=== PATIENT | male | born 1965 | race Caucasian/White ===

== ENCOUNTER 2023-09-29 07:31 | Emergency (ER) | payer BC, SELFPAY ==
--- NOTE | 2023-09-29 07:33 | NURSING ---
NO OLD EKGS
[2023-09-29 07:35] VITALS: BP 130/65; PULSE 108; RESP 22; TEMP 36.6; O2SAT 94; BMI 34.3
--- NOTE | 2023-09-29 07:40 | EKG12_ITS ---
Test Reason : CP Blood Pressure : / mmHG Vent. Rate : 108 BPM Atrial Rate : 108 BPM P-R Int : 124 ms QRS Dur : 082 ms QT Int : 322 ms P-R-T Axes : 065 065 047 degrees QTc Int : 431 ms Sinus tachycardia Inferior infarct , age undetermined Possible Anterior infarct , age undetermined Abnormal ECG Confirmed by DENISSE SETH, RADHA ([id number]), photography editor PATRICK SIMON ([id number]) on 09/30/2023 9:23:48 AM Referred By: JOSELIN Confirmed By:RADHA SALCEDO MD
--- NOTE | 2023-09-29 07:58 | RAD_ITS ---
STUDY: X-RAY CHEST REASON FOR EXAM: Male, 58 years old. chest pain TECHNIQUE: Single AP portable view of the chest. COMPARISON: None. FINDINGS: No visualized consolidation. Top normal heart size. Chronic appearing streaky interstitial opacities in the left retrocardiac region. The lungs are clear and expanded. There is no demonstrated pleural abnormality. Sternal cerclage wires and vascular clips are present from a prior sternotomy and coronary artery bypass graft procedure (CABG). Normal mediastinum and cary. Normal visualized pulmonary arteries. Normal visualized aortic arch and descending thoracic aorta. Normal visualized thoracic spine. Normal visualized ribs, clavicles, and shoulders. There is no demonstrated abnormality of the visualized soft tissue structures of the upper abdomen. RAD/Chest 1 View (Portable) IMPRESSION: 1. No visualized consolidation. Top normal heart size. Chronic appearing streaky interstitial opacities in the left retrocardiac region. Electronically Signed: Jr Laureano MD at 8:17 EST ,
[2023-09-29] MEDS: Aspirin 81 MG TAB.CHEW 324 MG PO (08:03)
[2023-09-29 08:06] LABS: Absolute Lymphocyte Count 0.59 X10^3/uL (0.83-4.51); Absolute Neutrophil Count 10.9 X10^3/uL (2.0-7.7); Basophil# 0.04 X10^3/uL; Basophil% 0.3 % (0-1); Eosinophil# 0.08 X10^3/uL; Eosinophils% 0.6 % (0-5); Hematocrit 48.4 % (40-54); Hemoglobin 16.3 g/dL (13.0-16.5); Lymphocyte # 0.59 X10^3/ul (0.83-4.51); Lymphocyte % 4.8 % (19-41); Mean Corp Hgb Conc 33.7 g/dL (32-36); Mean Corpuscular Hgb 29.3 pg (27.0-32.0); Mean Corpuscular Volume 86.9 fL (80-94); Mean Platelet Vol. 10.4 fl (6.2-12.0); Monocyte# 0.67 X10^3/uL; Monocyte% 5.4 % (0-10); NRBC Flagged by Analyzer 0 % (0-5); Neutrophil # 10.91 X10^3/uL (2.7-7.7); Neutrophil % 88.6 % (47-70); POSITIVE DIFFERENTIAL YES; Platelet Count 287 K/mm3 (150-450); RBC Distribution Width CV 13.1 % (11.6-14.6); RBC Distribution Width SD 40.9 fl (35.1-43.9); Red Blood Count 5.57 M/mm3 (4.6-6.2); White Blood Count 12.3 K/mm3 (4.4-11.0)
[2023-09-29 08:18] LABS: Differential Indicated SCAN CRITERIA MET
[2023-09-29 08:24] LABS: Anion Gap 7 (5-15); BUN 39 mg/dL (7-18); BUN/Creat Ratio 22.7 RATIO (10-20); Calcium,Total 8.8 mg/dL (8.5-10.1); Chloride 105 mmol/L (98-107); Creatinine, Serum 1.72 mg/dL (0.70-1.30); EST Glomerular Filtration Rate 44 mL/min (>60); Est Glom Filt Rate - Afr Amer 53 mL/min (>60); Glucose 309 mg/dL (74-106); Sodium Level 136 mmol/L (136-145); Troponin-I HS (w/2H Reflex) 31 pg/mL (3.0-78.0)
[2023-09-29 08:48] LABS: Differential Comment SCANNED
--- NOTE | 2023-09-29 08:59 | ED.VIS.CHEST ---
HPI History of Present Illness Chief Complaint: Chest Pain Narrative Narrative: 58-year-old male presenting with chest pain. He has some left-sided chest pain around his scar. He states he has a history of NSTEMI but also has history of scar tissue which is caused pain in the chest. Patient states he woke up about 2 AM after having some acid reflux and felt like it was coming out of his nose. He took off his CPAP and went and washed his face and blew his nose. He states he drank some water and later felt short of breath. Patient states he does not wear oxygen. He states when EMS arrived at they were noting his oxygen was low but he does not know the number. He was placed on oxygen initially in the house and when he got the squad they took it off and his oxygen levels dropped again he does not know the number. Patient states he does have a history of CHF. Is on torsemide 20 mg daily. PFSH PFS Home Medications levofloxacin 500 mg tablet 500 mg PO DAILY #7 tabs 09/29/23 [Rx Last Taken Unknown] Allergy/AdvReac Type Severity Reaction Status Date / Time No Known Allergies Allergy Verified 09/29/23 07:35 Social History Smoking Status: Never smoker ROS ROS ED Constitutional Constitutional ED: Denies chills, fever(s) or sweats Eyes Eyes: Denies blurry vision or change in vision ENT ENT ED: Denies ear pain or sore throat Cardiovascular Cardiovascular: Reports chest pain; Denies palpitations or racing heartbeat Respiratory/Chest Respiratory/Chest: Reports cough and dyspnea; Denies sputum Gastrointestinal Gastrointestinal: Denies abdominal pain, constipation, diarrhea, nausea or vomiting Genitourinary Genitourinary ED: Denies dysuria, hematuria or urinary frequency Musculoskeletal Musculoskeletal: Denies arthralgias, myalgias or neck pain Integumentary Denies abscess, Abrasions or rash Neurologic Neurologic: Denies headache(s), paresthesias or weakness Psychiatric Psychiatric: Denies anxiety, depression, suicidal ideation or suicidal thoughts Endocrine Endocrinology: Denies polydipsia or polyuria EXAM Physical Exam Const Vital Signs: 09/29/23 07:35 09/29/23 07:31 09/29/23 07:57 Temperature 97.8 F Temperature Source Temporal Pulse Rate 108 H Respiratory Rate 22 H Respiratory Effort Short of Breath Blood Pressure 130/65 H Blood Pressure Mean 86 Pulse Ox 94 Oxygen Delivery Method Room Air Nasal Cannula Oxygen Flow Rate (L/min) 94 09/29/23 09:40 09/29/23 11:00 09/29/23 11:38 Temperature Temperature Source Pulse Rate 94 84 85 Respiratory Rate 20 H 18 16 Respiratory Effort Blood Pressure 98/65 111/68 97/56 L Blood Pressure Mean 76 82 69 Pulse Ox 95 95 94 Oxygen Delivery Method Room Air Nasal Cannula Oxygen Flow Rate (L/min) 2 Positive well nourished General Appearance ED: NAD HEENT Reports moist mucous membranes normocephalic and atraumatic Chest Wall inspection of chest normal Resp normal respiratory effort Auscultation: rales bilateral base Cardio regular rhythm Rate: tachycardic GI normal to inspection, nondistended, normoactive bowel sounds Extremity General Extremety ED: Negative for edema General Extremity: Negative for edema Neuro oriented x3 and CN's II-XII intact bilaterally Sensorium / Orientation: awake and alert Psych mental status grossly normal Skin no rashes or lesions noted Heart Score History: Slightly/Non-Suspicious ECG: Nonspecific Repolarization Age: >45 - <65 years Risk Factors: >/= 3 Risk Factors or History of CAD Troponin: </= Normal Limit Score: 4 MDM MDM MDM Narrative Medical decision making narrative: Patient presenting with chest pain and shortness of breath. Differential includes aspiration pneumonia, CHF, ACS, GERD, dehydration, anemia, electrolyte abnormalities. Patient does state that he has a history of wound dehiscence which is caused some of the pain in his surgical scar on the chest. CBC was obtained to assess white blood cell count, hemoglobin, platelets. BMP to assess renal function, electrolytes, glucose. High-sensitivity troponin and EKG to assess for ischemia/dysrhythmia. BNP to assess for CHF. Chest x-ray to rule out pneumonia or CHF. Patient declines analgesia or antiemetics at this time. CBC shows mild leukocytosis 12.3. Hemoglobin 16.3. Platelets 287. It is 1.72 and there is no comparison as patient has not been here before. High-sensitivity troponin 31 and delta troponin 43 therefore there is no significant interval change. BNP 19.5. EKG on my interpretation shows a normal sinus rhythm with a ventricular rate of 108 bpm without sign of ischemic change. Chest x-ray on my interpretation shows possible infiltrate in the left retrocardiac region. Radiologist interprets this as chronic appearing however the patient has a normal breath sounds on the left greater than right at the bases. We discussed his symptoms of shortness of breath. He was ambulated on room air and maintain normal saturations at 93%. We also discussed that he uses a CPAP but states he only cleans it once a month. After further discussion he notes that he only runs hot water through the tubing. He only scrubs his mask with dish soap but does not clean any other parts of it with soap. Given this I recommended that he keep his CPAP pillowcase cleaner and watch this more frequently. We will put him on Levaquin to cover him for pneumonia. Return precautions were given. Impression: 1. Chest pain 2. Dyspnea 3. Community-acquired pneumonia Lab Data Attestation: I reviewed the patient's lab results. Labs: Laboratory Results - last 24 hr 09/29/23 09/29/23 08:00 10:10 WBC 12.3 H RBC 5.57 Hgb 16.3 Hct 48.4 MCV 86.9 MCH 29.3 MCHC 33.7 RDW Std Deviation 40.9 RDW Coeff of [place] 13.1 Plt Count 287 MPV 10.4 Immature Gran % (Auto) 0.300 Neut % (Auto) 88.6 H Lymph % (Auto) 4.8 L [place] % (Auto) 5.4 Eos % (Auto) 0.6 Baso % (Auto) 0.3 Absolute Neuts (auto) 10.9 H Absolute Lymphs (auto) 0.59 L Nucleated RBC % 0 Differential Comment SCANNED Sodium 136 Potassium 4.0 Chloride 105 Carbon Dioxide 24.0 Anion Gap 7 BUN 39 H Creatinine 1.72 H Estim Creat Clear Calc 54.30 Est GFR (MDRD) Af Amer 53 L Est GFR (MDRD) Non-Af 44 L BUN/Creatinine Ratio 22.7 H Glucose 309 H Calcium 8.8 Troponin I High Sens 31 43 B-Natriuretic Peptide 19.5 Radiography Diagnostic Testing: Clinical Impression(s) from Imaging Studies Chest X-Ray 09/29/23 07:58 IMPRESSION: 1. No visualized consolidation. Top normal heart size. Chronic appearing streaky interstitial opacities in the left retrocardiac region. Electronically Signed: Jr Laureano MD at 8:17 EST , Discharge Plan Triage Chief Complaint: Chest Pain ED Provider: Yordy Gould Dx/Rx/DC Orders Instructions: ED Chest Pain, Noncardiac, ED Pneumonia (Adult) Prescriptions: New levofloxacin 500 mg tablet 500 mg PO DAILY Qty: 7 0RF Primary Care Provider: Ari Miranda Referrals: Ari Miranda MD [Primary Care Provider] - Disposition Disposition: Home, Self Care Capacity [employer] Reflex Medical hold order details:: IF a medical hold is selected below, a suggested order for a MEDICAL HOLD will reflex upon signing the document. Next of kin: [place] law dictates a PRIORITY LIST for identifying legal decision-maker/legal next of kin in the following order (LNOK): 1st: The patient?s legal guardian, if any 2nd: The patient's spouse (if status is questionable, consult Risk Management) 3rd: The patient?s adult child(rosa) (majority, if multiple children) 4th: The patient?s parents 5th: The patient?s adult siblings (majority, if multiple children siblings)
[2023-09-29 09:34] LABS: BNP,B-Type NATRIURETIC PEPTIDE 19.5 pg/mL (0-100)
[2023-09-29 09:40] VITALS: BP 98/65; PULSE 94; RESP 20; O2SAT 95
[2023-09-29 10:03] LABS: Reflex Troponin-HS? (from REC) Y
[2023-09-29 10:49] LABS: Troponin-I HS 43 pg/mL (3.0-78.0)
[2023-09-29 11:00] VITALS: BP 111/68; PULSE 84; RESP 18; O2SAT 95
[2023-09-29 11:38] VITALS: BP 97/56; PULSE 85; RESP 16; O2SAT 94
[2023-09-29] MEDS: levoFLOXacin 500 MG Tablet PO (12:07)
== END 2023-09-29 12:08 | disposition home or self-care (01) ==
PROVIDERS: Emergency Provider Student in an Organized Health Care Education/Training Program; PCP Internal Medicine; Visit Provider Student in an Organized Health Care Education/Training Program
DX: R07.9 Chest pain, unspecified (principal); I50.9 Heart failure, unspecified; J18.9 Pneumonia, unspecified organism; R06.00 Dyspnea, unspecified; I25.2 Old myocardial infarction; I5A Non-ischemic myocardial injury (non-traumatic)
CPT/HCPCS: 36415; 71045; 80048; 83880; 84484; 85025; 93005; 99285